=== PATIENT | male | born 1980 | race Caucasian/White ===

== ENCOUNTER 2024-04-16 16:50 | Emergency (ER) | payer MEDICARE, MEDICAID, SELFPAY ==
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
[2024-04-16 16:57] VITALS: BP 136/71; BMI 22.1
[2024-04-16 18:59] VITALS: BP 116/79
[2024-04-16] MEDS: KEFLEX 500 MG PO (19:55)
== END 2024-04-16 20:05 | disposition home or self-care (01) ==
LOC: EMR 16:50
PROVIDERS: EMERGENCY PHYSICIAN Emergency Medicine
DX: S01.81XA Laceration without foreign body of other part of head, initial encounter (principal); S01.111A Laceration without foreign body of right eyelid and periocular area, initial encounter; S51.011A Laceration without foreign body of right elbow, initial encounter; W19.XXXA Unspecified fall, initial encounter; Y93.55 Activity, bike riding; R62.50 Unspecified lack of expected normal physiological development in childhood
CPT/HCPCS: 99284; 70450; 70486; 72125; 73552

== ENCOUNTER 2024-09-27 15:30 | Emergency (ER) | payer MEDICARE, MEDICAID, SELFPAY ==
[2024-09-27 15:35] VITALS: BP 118/80
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
[2024-09-27] MEDS: MOTRIN 600 MG PO (17:24)
[2024-09-27] MEDS: TYLENOL 1000 MG PO (17:24)
== END 2024-09-27 19:28 | disposition home or self-care (01) ==
LOC: EMR 15:30
PROVIDERS: EMERGENCY PHYSICIAN Emergency Medicine; FAMILY PHYSICIAN Family Medicine
DX: M25.521 Pain in right elbow (principal); S42.411A Displaced simple supracondylar fracture without intercondylar fracture of right humerus, initial encounter for closed fracture; W19.XXXA Unspecified fall, initial encounter; Y93.55 Activity, bike riding
CPT/HCPCS: 99283; 29105; 73070; 73090; 73200

== ENCOUNTER 2024-10-03 06:46 | Day surgery (SDC) | payer MEDICARE, MEDICAID, SELFPAY ==
[2024-10-03] VITALS (11 sets, daily range): BP systolic 76–120; BP diastolic 58–78; BMI 21.5
--- NOTE | 2024-10-03 11:11 | PTCARENOTE ---
Patient rates high risk for DVT. Patients surgeon and anesthesiologist notified. no further orders.
[2024-10-03] MEDS: NORMOSOL-R/PLASMALYTE-A 1000 IV (11:13)
--- NOTE | 2024-10-03 11:29 | PTCARENOTE ---
R arm is in a sling and large linda wrap cast. Patients wipe not done (Dr. Peña contacted) and he said the wipe will be done in the OR. Patient would be unable to tolerate the linda wrap being removed. Patient was very upset during the insertion of
the IV. Patient has special needs. 3 nurses were all present to help with the insertion of the IV. Successful on first stick (Delmer RN inserted IV)..
--- NOTE | 2024-10-03 11:32 | PTCARENOTE ---
Patient states that he is unable to take preop meds without apple juice. Checked with Dr. Baker to see if he can take meds with applejuice and per Anesthesia, patient can not. Meds held per MD order.
[2024-10-03] MEDS: ZOFRAN 4 MG IV (14:41)
[2024-10-03] MEDS: DILAUDID 0.5 MG IV (14:44)
--- NOTE | 2024-10-03 17:41 | PTCARENOTE ---
Pt had asked if he needed to wear the sling at all times, reached out to Dr. Peña who confirmed he does need to wear it at all times. Called pt's father to let him know.
== END 2024-10-03 16:48 | disposition home or self-care (01) ==
LOC: SDS 06:46
PROVIDERS: ATTENDING PHYSICIAN Orthopaedic Surgery Hand Surgery
PROC: 0PSF04Z Reposition Right Humeral Shaft with Internal Fixation Device, Open Approach (ICD-10-PCS; 2024-10-03)
DX: S42.491A Other displaced fracture of lower end of right humerus, initial encounter for closed fracture (principal); V19.3XXA Pedal cyclist (driver) (passenger) injured in unspecified nontraffic accident, initial encounter; Y93.55 Activity, bike riding
CPT/HCPCS: 24545; 73080; 76000

== ENCOUNTER 2024-11-17 10:57 | Outpatient (RCR) | payer MEDICARE, MEDICAID, SELFPAY | END 2024-11-17 23:59 | disposition home or self-care (01) | LOC: ROT 10:57 | PROVIDERS: ATTENDING PHYSICIAN Orthopaedic Surgery Hand Surgery | DX: Z47.89 Encounter for other orthopedic aftercare (principal); Z73.6 Limitation of activities due to disability; M25.521 Pain in right elbow; W01.0XXD Fall on same level from slipping, tripping and stumbling without subsequent striking against object, subsequent encounter | CPT/HCPCS: 97010; 97110; 97140; 97166; 97535 ==

== ENCOUNTER 2024-12-15 10:42 | Outpatient (RCR) | payer MEDICARE, MEDICAID, SELFPAY | END 2024-12-15 23:59 | disposition home or self-care (01) | LOC: ROT 10:42 | PROVIDERS: ATTENDING PHYSICIAN Orthopaedic Surgery Hand Surgery | DX: Z47.89 Encounter for other orthopedic aftercare (principal); M25.521 Pain in right elbow; Z73.6 Limitation of activities due to disability; W01.0XXD Fall on same level from slipping, tripping and stumbling without subsequent striking against object, subsequent encounter | CPT/HCPCS: 97010; 97110; 97140 ==

== ENCOUNTER 2025-01-15 07:25 | Outpatient (RCR) | payer MEDICARE, MEDICAID, SELFPAY | END 2025-01-15 23:59 | disposition home or self-care (01) | LOC: ROT 07:25 | PROVIDERS: ATTENDING PHYSICIAN Orthopaedic Surgery Hand Surgery | DX: Z47.89 Encounter for other orthopedic aftercare (principal); M25.521 Pain in right elbow; Z73.6 Limitation of activities due to disability; W01.0XXD Fall on same level from slipping, tripping and stumbling without subsequent striking against object, subsequent encounter | CPT/HCPCS: 97010; 97110; 97140 ==

== ENCOUNTER 2025-02-09 12:40 | Outpatient (RCR) | payer MEDICARE, MEDICAID, SELFPAY | END 2025-02-09 23:59 | disposition home or self-care (01) | LOC: ROT 12:40 | PROVIDERS: ATTENDING PHYSICIAN Orthopaedic Surgery Hand Surgery | DX: Z47.89 Encounter for other orthopedic aftercare (principal); M25.521 Pain in right elbow; Z73.6 Limitation of activities due to disability; W01.0XXD Fall on same level from slipping, tripping and stumbling without subsequent striking against object, subsequent encounter | CPT/HCPCS: 97010; 97110; 97140 ==

== ENCOUNTER 2025-06-05 13:01 | Emergency (ER) | payer MEDICARE, MEDICAID, SELFPAY ==
[2025-06-05 13:12] VITALS: BP 103/68
--- NOTE | 2025-06-05 13:56 | ED.GENMED ---
History of Present Illness
General
Chief Complaint: Crisis Evaluation
Source: patient
Time Seen by Provider: 06/05/25 13:49
History of Present Illness
History of Present Illness:
This patient is a 44-year-old male with a history of developmental delay who presents emergency department via police after 302 was filed in the community. As per crisis team, patient reportedly was making threats to harm himself and to kill his
father. Here in the emergency department, patient is awake alert not agitated, but refuses to answer any questions for me. He is wondering how long he will be here and states he wants to go home he denies any physical complaints.
Past History
Past History
ED Past Medical History: Other (Developmentally delayed)
ED Past Surgical History: Orthopedic (Metal plate and screws in his R hand.)
Patient has exhibited threatening behavior?: No
Social History
Tobacco: Non-smoker
Alcohol: None
Personal: Single
Living: with family
Phy Exam
Physical Exam
Physical Exam:
GENERAL: Alert , in no apparent distress
EYE: pupils equal and reactive
NECK: Supple, no significant adenopathy.
ENT: o/p clr, mmm.
CARDIAC: Regular rate and rhythm .
LUNGS: Clear breath sounds bilaterally, no acute respiratory distress, no wheezes/rales/rhonchi
ABDOMEN: Soft, without focal tenderness, no r/g
NEUROLOGICAL: Alert and oriented, grossly nonfocal
SKIN: Warm and dry, skin intact.
MUSCULOSKELETAL: No edema, well perfused.
PSYCH: Will not answer questions regarding SI or HI
Course
Orders/Labs/Results
Orders:
Orders
06/05/25 13:55
1:1 Observation - Suicide/ Violent Behavior As Directed
PSYCHIATRY CONSULT Routine
Consulting Provider: Jose Alfredo Albert
Was physician already notified: Yes
Crisis Consult Routine
Reason for Consult: 302
Vital Signs
Initial and Last Documented VS:
Initial Vital Signs
Temp Pulse Resp BP Pulse Ox
98.1 F 73 18 103/68 97
06/05/25 13:12 06/05/25 13:12 06/05/25 13:12 06/05/25 13:12 06/05/25 13:12
Last Documented Vital Signs
Temp Pulse Resp BP Pulse Ox
98.1 F 73 18 103/68 97
06/05/25 13:12 06/05/25 13:12 06/05/25 13:12 06/05/25 13:12 06/05/25 13:58
*Pulse Oximetry
SaO2: 97
Oxygen Mode of Delivery: Room air
Update Note
Update Note:
Patient presents to the Emergency Department with ___reported 302 behavior
Number and Complexity of Problems Addressed at the Encounter
� Chronic conditions affecting care:
� Acute Exacerbation and/or Progression of Chronic Illness:
� Differential Diagnosis includes: But not limited to depression, anxiety, bipolar, schizophrenia, metabolic abnormality, etc. etc.
Amount and/or Complexity of Data to be Reviewed and Analyzed
� I performed an independent evaluation of and my interpretation is:
EKG:
CT:
Xrays:
Laboratory Studies:
Other:
� Review of other/old records reveals:
� Clinical information was obtained by an independent historian:
� Prescriptions/Medications Considered but not given:
� Further testing considered but not performed:
Risk of Complications and/or Morbidity or Mortality of Patient Management
� Social determinants of health affecting care:
� Discussion with other providers (PCP, Hospitalists, Consultants, etc):
� Escalation of care including admission/observation vs risk of discharge considered:
ED Attending Note
-
Portions of this chart may have been created with voice recognition software.� Occasional wrong word or��sound alike� substitutions may have occurred due to the inherent limitations of voice recognition software.
Discharge Plan
Departure
Patient Disposition: Psych Facility
Date of Disposition: 06/05/25
Time of Disposition: 14:42
Condition: Fair
Discharge Problem:
Suicidal ideation
Prescriptions:
No Action
Tylenol
2 tab PO DAILY PRN (Reason: pain)
Referrals:
UNKNOWN - PT NOT,INTERVIEWE [Family Provider]
Interventions
Interventions:
*Risk Screen - Suicide Last Done: 06/05/25 13:12
*General Assessment Last Done: 06/05/25 13:12
*Neglect/Abuse Screening Last Done: 06/05/25 13:12
ED-Psychological Assessment Last Done: 06/05/25 13:13
Discharge Date and Time
Print Language: LATVIAN
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
[2025-06-05] MEDS: BENADRYL 50 MG PO (23:33)
[2025-06-05 23:49] VITALS: BP 104/63
--- NOTE | 2025-06-06 02:21 | DOWNTIME ---
There was a [employer] Downtime on 06/06/2025 from 0100 to 06/06/2025 at 0215. Downtime documentation of patient's care, including medication administrations, has been reconciled in the electronic record per guidelines. Refer to the
patient's paper chart under the miscellaneous tab to see printed paper medication records and downtime forms.
[2025-06-06 07:12] VITALS: BP 124/88
== END 2025-06-06 09:47 ==
LOC: EMR 13:01
PROVIDERS: CONSULT PHYSICIAN Psychiatry & Neurology Psychiatry; EMERGENCY PHYSICIAN Emergency Medicine
DX: R45.851 Suicidal ideations (principal); R45.850 Homicidal ideations; F79 Unspecified intellectual disabilities; Z63.8 Other specified problems related to primary support group
CPT/HCPCS: 99285

== ENCOUNTER → 2025-09-05 07:55 | Outpatient (REF) | payer MEDICARE, MEDICAID, SELFPAY ==
[2025-09-05 09:22] LABS: Hematocrit 45.8 % (39.0-52.0); Hemoglobin 16.0 g/dL (13.0-18.0); Mean Corp Hgb Conc. 34.9 g/dL (33.0-37.0); Mean Corpuscular Volume 87.9 fL (80.0-94.0); Nucleated Red Blood Cells % 0 % (-); Platelet Count 222 10^3/uL (130-400); Red Cell Dist. Width 11.8 % (11.5-14.5)
[2025-09-05 10:43] LABS: ALT (SGPT) 26 U/L (0-50); AST (SGOT) 29 U/L (17-59); Albumin 4.8 g/dl (3.5-5.0); Alkaline Phosphatase 53 U/L (38-126); Blood Urea Nitrogen 16 mg/dl (9-20); Calcium 9.8 mg/dl (8.4-10.2); Carbon Dioxide 28 mmol/L (22-30); Chloride 102 mmol/L (98-107); Glucose 89 mg/dl (70-99); HDL Cholesterol 52 mg/dl; LDL Cholesterol, Calculated 62 mg/dl; Potassium 4.2 mmol/L (3.5-5.1); Sodium 137 mmol/L (135-145); Total Protein 7.4 g/dl (6.3-8.2); Very Low Density Lipoprotein 10 mg/dl (0-30); eGFR > 60.00
[2025-09-05 10:52] LABS: TSH 0.94 uIU/ml (0.47-4.68)
[2025-09-06 16:44] LABS: Lyme Antibody Screen, EIA Negative (Negative)
== END ==
LOC: REG 07:55
PROVIDERS: ATTENDING PHYSICIAN Physician Assistant Medical
DX: Z00.00 Encounter for general adult medical examination without abnormal findings (principal); Z13.29 Encounter for screening for other suspected endocrine disorder; Z13.220 Encounter for screening for lipoid disorders; W57.XXXA Bitten or stung by nonvenomous insect and other nonvenomous arthropods, initial encounter; Z79.899 Other long term (current) drug therapy; F71 Moderate intellectual disabilities
CPT/HCPCS: 36415; 80053; 80061; 84443; 85025; 86618